=== PATIENT | male | born 1970 | race Caucasian/White ===

== ENCOUNTER 2017-03-14 12:09 | Emergency (ER) | payer OTHER ==
[~2017-03-14] VITALS: Ht 172.7 cm; Wt 122.4 kg
[2017-03-14] MEDS ORDERED: MECLIZINE CHEWABLE 25 MG TAB PO ONE (13:30)
[2017-03-14] MEDS ORDERED: MECLIZINE CHEWABLE 25 MG TAB ONE (13:32)
[2017-03-14 13:47] LABS: HEMATOCRIT 42.2 % (39.2-51.8); HEMOGLOBIN 14.6 g/dL (13.7-18.0); WHITE BLOOD COUNT 5.3 x10^3/uL (3.4-10)
[2017-03-14 13:57] LABS: BLOOD UREA NITROGEN 13 mg/dL (7-18)
[2017-03-14 14:16] LABS: ASPARTATE AMINO TRANSFERASE 33 U/L (15-37); IS PT STATUS REG ER OR PRE ER? YES
[2017-03-14] MEDS ORDERED: HYDROcodone/APAP 5/325 TABLET ONE (15:10)
[2017-03-14] MEDS ORDERED: ACETAMINOPHEN 500 MG TABLET ONE (15:16)
[2017-03-14] MEDS ORDERED: ACETAMINOPHEN 325 MG TABLET PO ONE (15:30)
[2017-03-14] MEDS ORDERED: ACETAMINOPHEN 500 MG TABLET PO ONE (15:30)
[2017-03-14 15:56] VITALS: BP 153/99
== END 2017-03-14 17:31 | disposition home or self-care (01) ==
LOC: ED 14:05
DX: H81.11 Benign paroxysmal vertigo, right ear (principal); H81.391 Other peripheral vertigo, right ear
CPT/HCPCS: 36415; 70450; 80053; 81003; 84484; 85025; 93005; 99285

== ENCOUNTER 2019-11-12 14:00 | Observation (INO) | payer OTHER ==
[~2019-11-12] VITALS: Ht 172.7 cm; Wt 110.9 kg
[2019-11-12] MEDS ORDERED: ONDANSETRON 2MG/ML, 2ML IVPush ONE (14:30)
[2019-11-12] MEDS ORDERED: MORPHINE SULFATE 4 MG/ML, 1ML IVPush PRN (14:30)
[2019-11-12] MEDS ORDERED: ASPIRIN 81 MG TABLET CHEW PO ONE (14:30)
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
[2019-11-12] MEDS ORDERED: ONDANSETRON 2MG/ML, 2ML ONE (14:34)
[2019-11-12] MEDS ORDERED: ASPIRIN 81 MG TABLET CHEW ONE (14:34)
[2019-11-12] MEDS ORDERED: MORPHINE SULFATE 4 MG/ML, 1ML ONE (14:34)
[2019-11-12 14:49] LABS: BASOPHILS # (AUTO) 0.03 x10^3/uL (0-0.1); BASOPHILS % (AUTO) 1 % (0-1); EOSINOPHILS # (AUTO) 0.05 x10^3/uL (0-0.4); EOSINOPHILS % (AUTO) 1 % (1-7); LYMPHOCYTES # (AUTO) 0.66 x10^3/uL (1-3.4); LYMPHOCYTES % (AUTO) 12 % (22-44); MD NO; MEAN CORPUSCULAR HEMOGLOBIN 28.5 pg (27.5-34.5); MEAN CORPUSCULAR HGB CONC 32.8 g/dL (33.2-36.2); MEAN CORPUSCULAR VOLUME 87.1 fL (81-97); MEAN PLATELET VOLUME 8.9 fL (7.4-10.4); MONOCYTES # (AUTO) 0.34 x10^3/uL (0.2-0.8); MONOCYTES % (AUTO) 6 % (2-9); NEUTROPHILS # (AUTO) 4.49 x10^3/uL (1.8-6.8); NEUTROPHILS % (AUTO) 81 % (42-75); PLATELET COUNT 199 x10^3/uL (130-400); RED BLOOD COUNT 5.78 x10^6/uL (4.38-5.82); RED CELL DISTRIBUTION WIDTH 15.7 % (9.4-14.8)
[2019-11-12 14:55] LABS: ALBUMIN 3.4 g/dL (3.4-5.0); ANION GAP 6 mmol/L (5-15); CALCIUM 9.3 mg/dL (8.5-10.1); CHLORIDE 107 mmol/L (98-107)
[2019-11-12 15:00] LABS: ALANINE AMINOTRANSFERASE 80 U/L (12-78); ALKALINE PHOSPHATASE 42 U/L (45-117); BILIRUBIN,TOTAL 0.5 mg/dL (0.2-1.0); CREATININE 1.26 mg/dL (0.7-1.3); TOTAL PROTEIN 7.2 g/dL (6.4-8.2); TROPONIN I < 0.015 ng/mL (0.000-0.045)
[2019-11-12 15:57] LABS: D-DIMER 0.23 ug/mlFEU (0.00-0.52); INTERNATIONAL NORMALIZED RATIO 0.96 (0.93-1.1); PROTHROMBIN TIME 10.2 Seconds (9.6-11.5)
[2019-11-12] MEDS ORDERED: SODIUM CHLORIDE 0.9% 1,000 ML IV SCH (17:01)
[2019-11-12] MEDS ORDERED: ACETAMINOPHEN 325 MG TABLET PO PRN (17:30)
[2019-11-12] MEDS ORDERED: hydrALAzine 20 MG/ML, 1ML IVPush PRN (17:30)
[2019-11-12] MEDS: INSULIN LISPRO 100 UNITS/ML, PEN SQ-INSULIN SCH ×2 (17:30→20:02)
[2019-11-12] MEDS ORDERED: morphine SULFATE 10 MG/ML, 1ML IVPush PRN (17:30)
[2019-11-12] MEDS ORDERED: LABETALOL 5MG/ML, 20ML IVPush PRN (17:30)
[2019-11-12] MEDS ORDERED: ONDANSETRON 2MG/ML, 2ML IVPush PRN (17:30)
[2019-11-12 17:53] LABS: TROPONIN I < 0.015 ng/mL (0.000-0.045)
--- NOTE | 2019-11-12 18:20 | NUR ---
REPORT GIVEN TO MAURI
[2019-11-12 20:00] VITALS: BP 143/76
[2019-11-12] MEDS: HEPARIN 5,000 UNITS/ML, 1ML SQ SCH (20:00)
[2019-11-12 20:25] LABS: TROPONIN I < 0.015 ng/mL (0.000-0.045)
[2019-11-12] MEDS ORDERED: ASPI-496 PO (21:14)
[2019-11-12] MEDS ORDERED: METF10007 PO (21:14)
[2019-11-12] MEDS ORDERED: FENO160T12 PO (21:16)
[2019-11-12] MEDS ORDERED: LISI-424 PO (21:16)
[2019-11-13 00:41] VITALS: BP 116/75
[2019-11-13 02:36] LABS: BASOPHILS # (AUTO) 0.03 x10^3/uL (0-0.1); BASOPHILS % (AUTO) 1 % (0-1); EOSINOPHILS # (AUTO) 0.09 x10^3/uL (0-0.4); EOSINOPHILS % (AUTO) 2 % (1-7); LYMPHOCYTES % (AUTO) 18 % (22-44); MD NO; MEAN CORPUSCULAR HEMOGLOBIN 28.5 pg (27.5-34.5); MEAN CORPUSCULAR HGB CONC 32.8 g/dL (33.2-36.2); MEAN PLATELET VOLUME 8.5 fL (7.4-10.4); MONOCYTES # (AUTO) 0.54 x10^3/uL (0.2-0.8); MONOCYTES % (AUTO) 10 % (2-9); NEUTROPHILS # (AUTO) 3.79 x10^3/uL (1.8-6.8); NEUTROPHILS % (AUTO) 70 % (42-75); PLATELET COUNT 196 x10^3/uL (130-400); RED BLOOD COUNT 5.67 x10^6/uL (4.38-5.82); RED CELL DISTRIBUTION WIDTH 15.9 % (9.4-14.8)
[2019-11-13 02:42] LABS: ALANINE AMINOTRANSFERASE 66 U/L (12-78); ANION GAP 4 mmol/L (5-15); CALCIUM 8.5 mg/dL (8.5-10.1); CHLORIDE 107 mmol/L (98-107); CHOLESTEROL, TOTAL 256 mg/dL (140-239); CREATININE 1.16 mg/dL (0.7-1.3)
[2019-11-13 02:44] LABS: ALKALINE PHOSPHATASE 34 U/L (45-117); BILIRUBIN,TOTAL 0.5 mg/dL (0.2-1.0); CHOL/HDL RATIO 11.1; HDL CHOL % 9 % (26-37); HDL CHOLESTEROL (DIRECT) 23 mg/dL (40-60); LDL CHOLESTEROL,CALCULATED 176 mg/dL (54-169); LDL/HDL RATIO 7.7 (0.5-3.0); TOTAL PROTEIN 6.5 g/dL (6.4-8.2); TRIGLYCERIDES 283 mg/dL (50-200); VLDL CHOLESTEROL 57 mg/dL (0-25)
[2019-11-13 03:01] LABS: TROPONIN I < 0.015 ng/mL (0.000-0.045)
[2019-11-13] MEDS: HEPARIN 5,000 UNITS/ML, 1ML SQ SCH ×2 (04:54→12:20)
[2019-11-13] MEDS ORDERED: ESCI10TA10 PO (05:22)
[2019-11-13 07:08] VITALS: BP 135/91
[2019-11-13] MEDS: INSULIN LISPRO 100 UNITS/ML, PEN SQ-INSULIN SCH ×2 (07:21→11:00)
[2019-11-13] MEDS ORDERED: REGADENOSON 0.4 MG/5 ML SYRINGE ONE (08:38)
[2019-11-13] MEDS ORDERED: ASPIRIN 81 MG TABLET CHEW PO SCH (09:00)
== END 2019-11-13 14:58 | disposition home or self-care (01) ==
LOC: ED 14:17 → EDIP 17:01 → 5SO 18:57
PROVIDERS: ADMIT Internal Medicine; ATTEND Internal Medicine
DX: R07.9 Chest pain, unspecified (principal); E11.65 Type 2 diabetes mellitus with hyperglycemia; E66.9 Obesity, unspecified; E78.5 Hyperlipidemia, unspecified; R00.0 Tachycardia, unspecified; R94.5 Abnormal results of liver function studies; E78.1 Pure hyperglyceridemia; E78.00 Pure hypercholesterolemia, unspecified; F12.90 Cannabis use, unspecified, uncomplicated; Z79.899 Other long term (current) drug therapy; Z79.82 Long term (current) use of aspirin; Z88.8 Allergy status to other drugs, medicaments and biological substances
CPT/HCPCS: 36415; 71045; 78452; 80053; 80061; 82962; 83880; 84443; 84484; 85025; 85379; 85610; 93005; 93017; 96361; 96372; 96374; 96375; 99285; A9502; C9898; G0378; J1644; J2270; J2405; J2785; J7030